=== PATIENT | female | born 1995 | race Caucasian/White ===

== ENCOUNTER → 2018-03-20 10:32 | Outpatient (CLI) | payer OTHER, SELFPAY ==
[2018-03-20 12:22] LABS: HCG Quantitative /Beta subunit < 2.39 mIU/mL; Luteinizing Hormone 7.85 mIU/mL
== END ==
PROVIDERS: Family Provider Physician Assistant; PCP Physician Assistant; Visit Provider Physician Assistant
DX: N91.2 Amenorrhea, unspecified (principal)
CPT/HCPCS: 36415; 83001; 83002; 84702

== ENCOUNTER → 2018-04-15 07:05 | Outpatient (CLI) | payer OTHER, SELFPAY ==
--- NOTE | 2018-04-15 07:07 | DI.US.S_ITS ---
PROCEDURE: US PELVIC COMPLETE INDICATIONS: AMENORRHEA TECHNIQUE: Real-time scanning was performed of the pelvic organs, with image documentation. Additional endovaginal scanning was necessary due to incomplete visualization of the adnexal and endometrial structures by transabdominal scanning. COMPARISON: None. FINDINGS: Transabdominal scanning: Limited scanning through the kidneys shows no hydronephrosis. No pathologic free abdominal or pelvic fluid. Endovaginal scanning: Uterus: Uterus is normal in size at 8.7 x 3.2 x 4.5 cm. The endometrium measures 5.0 mm in combined thickness. Ovaries: Normal ovaries bilaterally measuring 3.9 x 2.2 x 2.7 cm on the right and 4.9 x 1.9 x 1.9 cm on the left. Multiple sub-5 mm follicular cysts present bilaterally. No adnexal masses. IMPRESSION: 1. Multiple sub-5 mm follicular cysts present bilaterally which can be associated with polycystic ovarian syndrome. Dictated by: Mp LEY Interpreted: Carmen Voss MD on 04/15/2018 at 9:09 Approved by: Carmen Voss MD, PhD on 04/15/2018 at 14:50
== END ==
PROVIDERS: Family Provider Physician Assistant; PCP Physician Assistant; Visit Provider Physician Assistant
DX: E28.2 Polycystic ovarian syndrome (principal)
CPT/HCPCS: 76830; 76856